=== PATIENT | female | born 1945 | race Caucasian/White ===

== ENCOUNTER 2022-12-09 10:34 | Emergency (ER) | payer OTHER ==
[~2022-12-09] VITALS: Ht 170.2 cm; Wt 45.4 kg
[2022-12-09] MEDS ORDERED: QUETIAPINE FUMA25 MG (10:52)
[2022-12-09] MEDS ORDERED: ATORVASTATIN CA10 MG (10:52)
[2022-12-09] MEDS ORDERED: LEVOTHYROXINE25 MCG PO (10:52)
[2022-12-09] MEDS ORDERED: NAMENDA5 MG (10:53)
[2022-12-09] MEDS ORDERED: BUSPIRONE HCL7.5 MG (10:53)
[2022-12-09 11:49] LABS: HEMATOCRIT 36.7 % (36.0-45.00); HEMOGLOBIN 12.1 g/dL (12.0-15.00); MEAN CELL VOLUME 90.5 fL (80.00-100.00); MEAN CORPUSCULAR HEMOGLOBIN 29.8 pg (27.00-32.0); PLATELET COUNT 395 K/uL (150-450); RED BLOOD COUNT 4.05 M/uL (4.00-6.00); RED CELL DISTRIBUTION WIDTH 12.5 % (11.5-14.5)
[2022-12-09 12:25] LABS: CALCIUM 8.8 mg/dL (8.5-10.1); CREATININE SERUM 0.78 mg/dL (0.55-1.02); GFR 71.81; POTASSIUM 3.76 mEq/L (3.5-5.1)
== END 2022-12-09 17:12 | disposition home or self-care (01) ==
LOC: ER 10:34
PROVIDERS: General Practice
DX: K56.41 Fecal impaction (principal)